=== PATIENT | female | born 1940 | race Two or more races ===

== ENCOUNTER 2024-06-09 10:28 | Emergency (ER) | payer OTHER ==
[~2024-06-09] VITALS: Ht 152.4 cm; Wt 109.8 kg
[2024-06-09] MEDS ORDERED: GLIPIZIDE XL5 MG PO (10:55)
[2024-06-09] MEDS ORDERED: GRALISE600 MG PO (10:55)
[2024-06-09] MEDS ORDERED: VASOTEC20 M1 PO (10:55)
[2024-06-09] MEDS ORDERED: EZALLOR SPRINKL20 MG PO (10:56)
[2024-06-09] MEDS ORDERED: HYDROCHLOROTHIA25 MG PO (10:56)
[2024-06-09] MEDS ORDERED: METFORMIN HCL1000 M2 PO (10:57)
[2024-06-09 11:57] LABS: HEMATOCRIT 33.3 % (36.0-45.00); HEMOGLOBIN 11.9 g/dL (12.0-15.00); MEAN CELL VOLUME 85.1 fL (80.00-100.00); MEAN CORPUSCULAR HEMOGLOBIN 30.4 pg (27.00-32.0); MEAN CORPUSCULAR HGB CONC 35.7 g/dl (32.0-36.0); PLATELET COUNT 308 K/uL (150-450); RED BLOOD COUNT 3.91 M/uL (4.00-6.00); RED CELL DISTRIBUTION WIDTH 14.4 % (11.5-14.5)
[2024-06-09 12:29] LABS: ALBUMIN 3.7 gm/dL (3.4-5.0); BILIRUBIN TOTAL 0.47 mg/dL (0.3-1.2); CALCIUM 9.6 mg/dL (8.5-10.1); CREATININE SERUM 0.63 mg/dL (0.55-1.02); GFR 90.47; GLOBULINA 4.1 G/DL (2.4-3.5); POTASSIUM 3.83 mEq/L (3.5-5.1); TOTAL PROTEIN 7.8 gm/dL (6.4-8.2)
[2024-06-09] MEDS ORDERED: ANALPRAM HC 2.530 GM RECTAL (13:36)
== END 2024-06-09 13:44 | disposition home or self-care (01) ==
LOC: ER 10:30
PROVIDERS: General Practice
DX: K62.5 Hemorrhage of anus and rectum (principal); I10 Essential (primary) hypertension; E11.9 Type 2 diabetes mellitus without complications; Z79.84 Long term (current) use of oral hypoglycemic drugs